=== PATIENT | female | born 1960 | race Caucasian/White ===

== ENCOUNTER → 2018-12-28 | Outpatient (CLI) | payer OTHER ==
[~2018-12-28] MED LIST: CALCIUM 600 +1 EAC3 PO; CENTRUM SILVER1 EAC4 PO; DEPO-PROVERA; FISH OIL 1,001000 M2 PO; HAIR, SKIN & N1 EAC1 PO; MILK THISTLE500 MG PO; MOBIC15 MG PO; NORCO 5-325 TA1 EACH PO; PERCOCET 5-3251 EACH PO; PERCOCET PO; POTASSIUM99 M1 PO; PROTONIX40 M4 PO; XANAX 0.5 MG0.5 M1 PO; ZYRTEC10 M5 PO
== END ==
LOC: M.ULTRA 15:16
DX: M79.662 Pain in left lower leg (principal); M79.89 Other specified soft tissue disorders